=== PATIENT | female | born 1950 | race Caucasian/White ===

== ENCOUNTER → 2020-05-21 09:26 | Outpatient (CLI) | payer MEDICARE, OTHER, SELFPAY ==
--- NOTE | 2020-05-21 09:28 | DI.US.S_ITS ---
ULTRASOUND OF RIGHT BREAST AND AXILLA: 05/21/2020 CLINICAL: Patient returns today to evaluate an architectural distortion in the right breast. Comparison is made to exams dated: 05/21/2020 mammogram - [facility], 12/28/2017 ultrasound biopsy, 12/28/2017 mammogram - [facility], 11/24/2017 mammogram, 11/24/2017 ultrasound, and 03/15/2017 localization - [facility]. Color flow and real-time ultrasound of the right breast axilla were performed. Lei scale images of the real-time examination were reviewed. There is a 1.3 cm x 1.1 cm x 1.3 cm irregular mass with indistinct and angular margins in the right breast at 2 o'clock posterior depth 6 cm from the nipple. This irregular mass is hypoechoic with posterior acoustic shadowing. This correlates as palpated, with mammography findings, and area of clinical concern. There is associated architectural distortion. Color flow imaging demonstrates that there is vascularity present. No significant abnormalities were seen sonographically in the right axilla. IMPRESSION: HIGHLY SUGGESTIVE OF MALIGNANCY The 1.3 cm x 1.1 cm x 1.3 cm irregular mass in the right breast is highly suggestive of malignancy. An ultrasound guided biopsy is recommended. Findings and recommendations were discussed with the patient during today's examination by Dr. Santana. This exam was interpreted at Station ID: [id number]. Electronically Signed By: Duane Horton M.D. aty/:05/21/2020 12:57:38 letter sent: Biopsy Required Ultrasound BI-RADS: 5 Highly suggestive of malignancy
--- NOTE | 2020-05-21 09:28 | DI.MG.S_ITS ---
BILATERAL DIGITAL DIAGNOSTIC MAMMOGRAM 3D/2D POST LUMPECTOMY: 05/21/2020 CLINICAL: Right breast pain and lump. Comparison is made to exams dated: 11/24/2017 mammogram, 02/15/2017 mammogram, and 02/10/2017 mammogram - [facility]. There are scattered fibroglandular elements in both breasts. The right breast has post-operative findings. There is a new 1.7 cm irregular equal density mass in the right breast at 2 o'clock posterior depth. This correlates as palpated, with area of clinical concern, and skin marker. There is architectural distortion associated with the mass. No other significant masses, calcifications, or other findings are seen in either breast. IMPRESSION: INCOMPLETE: NEEDS ADDITIONAL IMAGING EVALUATION The new 1.7 cm irregular equal density mass in the right breast is indeterminate. An ultrasound is recommended for further evaluation and is scheduled to immediately follow this examination. This exam was interpreted at Station ID: [id number]. NOTE: For mammograms, a report in lay terms will be sent to the patient. Approximately 15% of breast malignancies will not be visualized mammographically. In the management of a palpable breast mass, a negative mammogram must not discourage biopsy of a clinically suspicious lesion. Electronically Signed By: Duane Horton M.D. aty/:05/21/2020 10:29:37 ACR BI-RADS Category 0: Incomplete [id number]
== END ==
PROVIDERS: PCP Nurse Practitioner; Referring Provider Nurse Practitioner; Visit Provider Nurse Practitioner
DX: R92.8 Other abnormal and inconclusive findings on diagnostic imaging of breast (principal); N63.12 Unspecified lump in the right breast, upper inner quadrant; N64.4 Mastodynia; N63.10 Unspecified lump in the right breast, unspecified quadrant; Z85.3 Personal history of malignant neoplasm of breast
CPT/HCPCS: 76642; 77066; G0279

== ENCOUNTER → 2020-06-05 13:02 | Outpatient (CLI) | payer MEDICARE, OTHER, SELFPAY ==
--- NOTE | 2020-06-05 | DI.MG.S_ITS ---
UNILATERAL RIGHT DIGITAL DIAGNOSTIC MAMMOGRAM: 06/05/2020 CLINICAL: Right post clip. Comparison is made to exams dated: 06/05/2020 ultrasound biopsy, 05/21/2020 ultrasound, and 05/21/2020 mammogram - [facility]. There are scattered fibroglandular elements in right breast. There is a marker clip in the appropriate position in the right breast at 2 o'clock posterior depth. This marker clip placement is at the biopsy site. IMPRESSION: POST PROCEDURE MAMMOGRAM FOR MARKER PLACEMENT There was a successful marker clip placement in the right breast posterior depth. This exam was interpreted at Station ID: [id number]. NOTE: For mammograms, a report in lay terms will be sent to the patient. Approximately 15% of breast malignancies will not be visualized mammographically. In the management of a palpable breast mass, a negative mammogram must not discourage biopsy of a clinically suspicious lesion. Electronically Signed By: Josefina Bhatti M.D. [facility]/:06/05/2020 15:40:12 ACR BI-RADS Category Post-procedure mammogram for marker placement
--- NOTE | 2020-06-05 | PATH_ITS ---
[facility] Accession Number: [id number] . 01 Material submitted: . breast - RIGHT BREAST SPECIMEN 2:00 6CMFN . 01 Diagnosis: Right Breast, 2 o'clock, 6 cm from Nipple, Image-Guided Core Biopsy: Invasive lobular carcinoma, intermediate grade. - Tootie score is 6 out of 9 possible (histologic = 3, nuclear = 2, mitotic index = 1). - In situ carcinoma: Not identified. - Lymphovascular invasion: Not identified. - Greatest linear dimension of invasive carcinoma: 0.8 cm as measured from the glass slide. - Calcifications: Not identified. - Predictive markers: Estrogen receptor positive, progesterone receptor negative, and HER2 equivocal by immunohistochemistry (please see comment for additional parameters). [facility] 06/10/2020 1625 Local . 01 Comment: Predictive marker immunohistochemical studies are performed on block A1 with the invasive carcinoma showing the following results: . Estrogen receptor (SP1): Positive (>95%, strong intensity). Progesterone receptor (1E2): Negative (0%). Her2 (4B5): Equivocal (2+); HER2 FISH analysis pending, reported as an addendum. . Immunostains to e-cadherin and beta-catenin are performed, which are negative on the invasive carcinoma, supporting the interpretation of a lobular as opposed to ductal type of carcinoma. . Internal controls for ER and MS are positive. Cold ischemic time is <5 minutes. The scoring criteria for breast biomarkers by immunohistochemistry is based on the ASCO/CAP guidelines (Aparna AC et al, J Clin Oncol: 2017Sep 13;36(20):5087-7519 and Aimee ME et al, Arch Pathol Lab Med: 2009;134(6):907-22). Deparaffinized sections of formalin fixed tissue (along with appropriate positive controls) are incubated with the above antibody(s). Using the automated [place]ura stainer, tissue is incubated with the designated antibody which is then localized by a non-biotin, dual polymer detection system. The external controls are reviewed for appropriate reactivity and found to be adequate. Results on the target cell population are indicated above. These tests have not been validated on decalcified tissue. This test was developed and its performance characteristics determined by [employer]. It has not been cleared or approved by the U.S. Food and Drug Administration. The FDA has determined that such clearance or approval is not necessary. This test is used for clinical purposes. It should not be regarded as investigational or for research. . The results of this case are verbally provided by Dr. Oakley to nurse practitioner Michaelle Quezada on 06/10/2020 at 3:55 p.m. She indicates that the patient has a history of breast carcinoma, status post right lumpectomy in 2018. . 01 Electronically signed: . Ciara Oakley MD, Pathologist NPI- [id number] . 01 Gross description: . Received one formalin-filled container, labeled with the patient's name and labeled R breast mass 2 o'clock 6 cm FN. The specimen is received with a plastic filter in container, sample loose in container and consists of multiple yellow-roblero, cylindrical-shaped portions of tissue which range in size from 0.1 x 0.1 x 0.1 cm to 0.7 x 0.3 x 0.2 cm. All fragments are totally submitted in one cassette. Possible collection date and time per requisition: 06/05/20 at 1426. Total fixation time: Approximately 70 hours. ([id number]) /FRR 06/07/2020 1422 Local . 01 Pathologist provided ICD-10: C50.911 . 01 CPT . 892273, V05843, E16918, 824594, 870334, 025333 Performed at: 01 [facility] [address] [place] [address], [place], [place] [id number] MD Mateo Ortiz MD Phone: [phone]
--- NOTE | 2020-06-05 13:04 | DI.US.S_ITS ---
ULTRASOUND GUIDED BIOPSY RIGHT BREAST USING VACUUM DEVICE WITH MARKING DEVICE INSERTED AND POST MAMMOGRAPHIC IMAGIN06/05/2020 CLINICAL: Right breast mass. PATIENT CONSENT: Risks (minor bleeding, infection, vasovagal reaction and repeat procedure), benefits and alternatives were explained to the patient and written informed consent was obtained. Correlation is made to exams dated: 05/21/2020 ultrasound, 05/21/2020 mammogram - [facility], 12/28/2017 ultrasound biopsy, 12/28/2017 mammogram - [facility], 11/24/2017 mammogram, and 11/24/2017 ultrasound - [facility]. An ultrasound guided biopsy using real-time ultrasound was performed for the indistinct irregular shaped mass located in the right breast at 2 o'clock posterior depth. This was described on the previous mammography and ultrasound reports. The skin was prepped in the usual manner. The abnormality was approached from the lateral aspect. A 13 gauge biopsy needle was placed adjacent to the abnormality under ultrasound guidance. Once the needle was documented to be in the correct location, four specimens were obtained using the Mammotome biopsy system. A Vision biopsy clip was inserted into the biopsy cavity. Post procedure mammographic imaging demonstrates the location device resides in the targeted area. The specimens were sent to the laboratory for pathological analysis. IMPRESSION: ULTRASOUND GUIDED BIOPSY MALIGNANT Ultrasound guided biopsy of the mass in the right breast at 2 o'clock posterior depth was successful. Pathology indicates malignant invasive lobular carcinoma ([place]). Pathology results are concordant with imaging findings. This exam was interpreted at Station ID: [id number]. Josefina Payne [facility]/:06/12/2020 12:46:10
== END ==
PROVIDERS: PCP Nurse Practitioner; Referring Provider Nurse Practitioner; Visit Provider Nurse Practitioner
DX: N63.12 Unspecified lump in the right breast, upper inner quadrant (principal); R92.8 Other abnormal and inconclusive findings on diagnostic imaging of breast; Z85.3 Personal history of malignant neoplasm of breast
CPT/HCPCS: 19083; 77065

== ENCOUNTER 2025-01-30 12:22 | Inpatient (IN) | payer MEDICARE, OTHER, SELFPAY ==
[2025-01-30] VITALS (20 sets, daily range): BP systolic 124–190; BP diastolic 67–90; PULSE 51–80; RESP 9–21; TEMP 36.3–37; O2SAT 92–100; BMI 19.2
--- NOTE | 2025-01-30 | DI.RAD.S_ITS ---
PROCEDURE: XR FEMUR RT MIN 2V INDICATIONS: HIP NAILING LONG NAIL TECHNIQUE: 2 views of the femur were acquired. COMPARISON: [facility], CR, XR HIP W PEL RT 2V, 01/30/2025, 12:38. FINDINGS: Intraoperative images demonstrating labeled right femoral fixation. Hardware is intact. There is relatively good anatomic alignment of fracture fragments. IMPRESSION: Intraoperative femoral fixation. Dictated by: Michelle Chavez M.D. on 01/30/2025 at 22:53 Approved by: Michelle Chavez M.D. on 01/30/2025 at 22:54
--- NOTE | 2025-01-30 12:30 | DI.RAD.S_ITS ---
PROCEDURE: XR HIP W PEL IF DONE RT 2V INDICATIONS: R hip dislocation vs fx. sitting down. mets from ca TECHNIQUE: AP pelvis with lateral view(s) of the right hip(s). COMPARISON: None. FINDINGS: Bones: Acute slightly comminuted fracture involving right proximal femoral shaft with the lateral angulation and displacement at fracture site. Pelvic ring appears intact. Markedly heterogeneous density throughout visualized bony pelvis and lower lumbar spine concerning for metastatic disease with possible pathologic fracture. No evidence of avascular necrosis of femoral head. Soft tissues: The visualized bowel gas pattern is normal. No suspicious soft tissue calcifications. IMPRESSION: Acute comminuted and angulated right proximal femoral shaft fracture. Heterogeneous density throughout bony pelvis and bilateral femoral shaft concerning for bony metastasis given patient's history of breast cancer and likely pathologic fracture. Dictated by: Silverio Figueroa M.D. on 01/30/2025 at 13:31 Approved by: Silverio Figueroa M.D. on 01/30/2025 at 13:32
--- NOTE | 2025-01-30 12:31 | ED.GENADULT ---
HPI - General Adult General Chief complaint: Extremity Injury, Lower Stated complaint: Hip Dislocation Time Seen by Provider: 01/30/25 12:26 Source: patient, EMS and RN notes reviewed Mode of arrival: EMS Limitations: no limitations History of Present Illness HPI narrative: 74-year-old female history of known metastatic breast cancer with Mets to the bone, dyslipidemia who presents with complaint of right hip pain which she describes as chronic in either hip dislocation or fracture. Patient was sitting down when her hip went out of place in his currently held in adduction across her other leg. Patient states it is painful bit better after medications from EMS. She states she did have pain before. She has never had any prior hip surgeries, she has never had a prior hip dislocation or fracture that she is aware of. She states there known metastases to her hip and pelvis region. She denies any numbness tingling or weakness. She denies pain elsewhere currently. She states she takes letrozole daily, tizanidine for daily medication she denies any anticoagulants. She denies any drug allergies. Former smoker, no regular alcohol, no recreational drugs. She follows with oncology at [facility]. Related Data Home Medications ?Medication ?Instructions ?Recorded ?Confirmed niacin 500 mg tablet,extended 500 mg PO BEDTIME 01/14/20 05/13/20 release (Endur-Acin) [place] Tail 1 cap PO DAILY 05/26/20 05/26/20 cardiotone 1 tab PO .HS Blood pressure 05/26/20 cholecalciferol (vitamin D3) 125 125 mcg PO DAILY 05/26/20 05/26/20 mcg (5,000 unit) capsule melatonin 10 mg capsule 10 mg PO BEDTIME PRN 05/26/20 05/26/20 omega-3 fatty acids 1,000 mg 1,000 mg PO DAILY 05/26/20 05/26/20 capsule (Fish Oil Concentrate) vitamin B complex (B 1 tab PO DAILY 05/26/20 05/26/20 Complex-Vitamin B12 tablet) zinc 50 mg tablet 50 mg PO DAILY 06/11/20 Previous Rx's ?Medication ?Instructions ?Recorded ascorbate calcium (vitamin C) 500 500 mg PO DAILY #1 tab 05/26/20 mg tablet Allergies Allergy/AdvReac Type Severity Reaction Status Date / Time No Known Drug Allergies Allergy Verified 01/30/25 12:37 Review of Systems Review of Systems ROS Unobtainable: All systems reviewed & are unremarkable except as noted in HPI and below Patient History Medical History Lobular breast cancer Hyperlipidemia Wears glasses Foot pain (~1999) Mumps Measles Chicken pox Family history of pulmonary fibrosis Osteopenia History of breast cancer (~2016) Surgical History Anesthesia History of breast biopsy (~2017) History of meniscectomy of right knee (~1967) History of meniscectomy of left knee (~1968) History of tonsillectomy (~1954) History of bunionectomy (~2007) S/P lumpectomy, right breast (~2017) Family History Father Hyperlipidemia Hypertension Mother Pulmonary fibrosis Grandfather History of heart disease Social History Smoking Status: Never smoker Tobacco: How many years used: 1 alcohol intake: current (~1-2 per week ) substance use type: does not use Exam Narrative Exam Narrative: GENERAL: Alert and oriented x three, mild distress, thin/cachectic female HEENT: Head normocephalic, atraumatic, EOMI, pupils reactive, face symmetric, moist mucous membranes NECK: Supple, full range of motion CARDIOVASCULAR: Regular rate and rhythm without murmurs, rubs or gallops. RESPIRATORY: Breath sounds equal bilaterally, no wheezes rales or rhonchi. ABDOMEN: Soft, nontender. Normoactive bowel sounds all 4 quadrants. No guarding or rebound, rigidity, no mass : No CVA tenderness EXTREMITIES: Patient's right hip is held in adduction extending across her left lower extremity. She has 2+ pulses bilaterally. She has normal dorsiflexion plantar flexion with no tenderness of the ankle, knee. She is not particularly tender over the hip itself. Patient has not no ecchymosis or other skin changes. She has no other bony tenderness with normal range of motion of her other extremities. NEUROLOGICAL: Cranial nerves II through XII grossly intact. Moving all extremities SKIN: Warm, dry, no petechiae, no rashes or lesions. Initial Vital Signs Initial Vital Signs: Vital Signs Pulse Rate 70 01/30/25 12:29 Pulse Oximetry 92 01/30/25 12:29 Course Orders Ordered: ED Orders 01/30/25 12:30 XR hip w pel RT 2V Stat 01/30/25 12:49 CBC Auto Diff [Complete Blood Count AUTO DIFF] Stat CMP [Comprehensive Metabolic Panel] Stat 01/30/25 13:31 EKG-12 Lead Routine 01/30/25 14:07 Type and Screen Stat 01/30/25 19:15 XR C-arm up to 60 min Stat Lactated Ringer's (Lactated Ringers) 1,000 mls @ 42 mls/hr IV CONT ERINN Discontinued Medications Acetaminophen (Acetaminophen 325 Mg Tablet) 975 mg PO NOW ONE Stop: 01/30/25 15:26 Hydromorphone HCl (Hydromorphone Hcl 0.5 Mg/0.5 Ml Syringe) 0.5 mg IV NOW ONE Stop: 01/30/25 13:49 Last Admin: 01/30/25 14:20 Dose: 0.5 mg Documented By: RAÚL Sodium Chloride (Normal Saline 0.9%) 1,000 mls @ 1,000 mls/hr IV BOLUS ONE Stop: 01/30/25 15:05 Last Admin: 01/30/25 14:20 Dose: 1,000 mls/hr Documented By: RAÚL Vital Signs Vital signs: Vital Signs - 8 hr 01/30/25 12:29 01/30/25 12:30 01/30/25 12:30 Temperature Pulse Rate 70 69 Pulse Rate [Right Dorsalis Pedis] Respiratory Rate 12 Blood Pressure 147/84 H Pulse Oximetry 92 92 Oxygen Delivery Method 01/30/25 12:37 01/30/25 12:45 Temperature 98.6 F Pulse Rate 65 Pulse Rate [Right Dorsalis Pedis] 70 Respiratory Rate 18 Blood Pressure 124/88 Pulse Oximetry 98 Oxygen Delivery Method Room Air Medical Decision Making Lab Data 01/30/25 12:49 01/30/25 12:49 Labs: Lab Results 01/30/25 Range/Units 12:49 WBC 4.0 L (4.5-11.0) X10^3/uL RBC 3.56 L (4.0-5.2) X10^6/uL Hgb 10.9 L (12.0-16.0) g/dL Hct 31.6 L (36-46) % MCV 88.8 (80-100) fL MCH 30.5 (26-34) PG MCHC 34.4 (30-36) % RDW 13.0 (11.6-14.8) % Plt Count 135 L (150-400) X10^3/uL Neut % (Auto) 78.0 H (50-75) % Lymph % (Auto) 13.6 L (25-40) % [place] % (Auto) 8.0 (3-14) % Eos % (Auto) 0.2 L (2-4) % Baso % (Auto) 0.2 (0-2) % Neut # (Auto) 3100 (9843-7205) /uL Lymph # (Auto) 500 L (2326-3105) /uL [place] # (Auto) 300 (0-900) /uL Eos # (Auto) 0 (0-450) /uL Baso # (Auto) 0 (0-100) /uL Sodium 139 (137-145) mmol/L Potassium 3.4 (3.4-5.1) mmol/L Chloride 101 (98-107) mmol/L Carbon Dioxide 29 (22-32) mmol/L BUN 21 H (7-17) mg/dL Creatinine 1.02 (0.52-1.04) mg/dL Estimated GFR 58 L (>60) mL/min BUN/Creatinine Ratio 20.6 (6-22) Glucose 104 H (70-99) mg/dL Calcium 11.1 H (8.4-10.2) mg/dL Total Bilirubin 0.9 (0.2-1.3) mg/dL AST 61 H (14-36) IU/L ALT 27 (<35) IU/L Alkaline Phosphatase 263 H (38-126) U/L Total Protein 6.4 (6.3-8.2) g/dL Albumin 3.8 (3.5-5.0) g/dL Globulin 2.6 (1.7-4.1) g/dL Albumin/Globulin Ratio 1.5 (1.0-2.8) MDM Narrative Medical decision making narrative: Hip x-ray, right shows a right hip fracture awaiting final report. Formal report shows acute comminuted and angulated right proximal femoral shaft fracture heterogeneous density throughout bony pelvis and bilateral femoral shaft concerning for bony metastases given patient's history of breast cancer and likely pathologic fracture. Labs white count of 4 hemoglobin 10.9 platelets of 135, chemistries show BUN 21 otherwise normal electrolytes calcium is 11.1, AST 61 alk-phos is 263. EKG shows sinus rhythm left axis deviation, nonspecific ST change. No prior for comparison. 74-year-old female with right femur fracture while sitting down with known metastatic breast cancer with Mets to the bones. Patient has significant angulation of the fracture. She is neurovascularly intact evaluation. Patient received fluids for her hypocalcemia, pain medication. Spoke with orthopedic surgery, Dr. June who has patient here in the department, reviewed her imaging he would like to take to the OR today. Aware of history of metastatic bone cancer. Plan for admission to medicine. Defers CT imaging, will reduce in OR. Spoke with Dr. Rae, hospitalist who accepts for admission. Discharge Plan Departure Patient Disposition: Admitted As Inpatient Clinical Impression: Closed right femoral fracture, Hypercalcemia Admit Date/Time: 01/30/25 14:49 Admit Provider: Teto June
[2025-01-30 12:59] LABS: Add Manual Diff / Slide Review NO; Hematocrit 31.6 % (36-46); Hemoglobin 10.9 g/dL (12.0-16.0); Lymphocytes Absolute Auto 500 /uL (1100-4500); Mean Corpuscular HGB Conc 34.4 % (30-36); Mean Corpuscular Hemoglobin 30.5 PG (26-34); Mean Corpuscular Volume 88.8 fL (80-100); Platelet Count 135 X10^3/uL (150-400)
[2025-01-30 13:14] LABS: Alanine Aminotransferase 27 IU/L (<35); Albumin 3.8 g/dL (3.5-5.0); Albumin Globulin Ratio 1.5 (1.0-2.8); Alkaline Phosphatase 263 U/L (38-126); Blood Urea Nitrogen 21 mg/dL (7-17); Calcium 11.1 mg/dL (8.4-10.2); Carbon Dioxide 29 mmol/L (22-32); Chloride 101 mmol/L (98-107); Estimated Glomerular Filt Rate 58 mL/min (>60); Globulin 2.6 g/dL (1.7-4.1); Glucose 104 mg/dL (70-99); HEMOLYSIS < 15 (0-50); Potassium 3.4 mmol/L (3.4-5.1); Sodium 139 mmol/L (137-145); Total Protein 6.4 g/dL (6.3-8.2)
--- NOTE | 2025-01-30 13:31 | EKG_ITS ---
[id number], [place] [address] Test Date: 2025-01-30 Pat Name: Urmila Fernandez Department: Room: Gender: Female Studio Sales Associate: ANGEL : 1950 Requested By: Order Number: [id number] Reading MD: Jarek Rae Measurements Intervals [place] Rate: 80 P: 81 [place]: 168 QRS: -50 QRSD: 82 T: 58 QT: 390 QTc: 449 Interpretive Statements Normal sinus rhythm Left axis deviation Pulmonary disease pattern Minimal voltage criteria for LVH, may be normal variant ( Truman product ) Nonspecific ST and T wave abnormality Noisy baseline Electronically Signed On 01-30-2025 15:01:58 PST by Jarek Rae
[2025-01-30] MEDS: SODIUM CHLORIDE 0.9% 1,000 ML 1000 ML IV (14:20)
[2025-01-30] MEDS: LACTATED RINGERS 1,000 ML 42 ML IV ×3 (16:11→22:26)
--- NOTE | 2025-01-30 16:38 | P.HP_ITS ---
History of Present Illness History of Present Illness Date Patient Seen: 01/30/25 Time Patient Seen: 15:00 Chief complaint: Hip Dislocation Narrative: The patient was a pleasant 74-year-old female with metastatic breast cancer who lives on [facility]. She developed right hip pain which occurred when her hip when on a place while sitting and trying to cross her leg. She came by ambulance and imaging revealed a hip fracture. She does have known metastases to bones. Orthopedics anticipates an operative repair later this evening. She had no other injuries and denies any other sites of pain. Her pain is well- controlled in the emergency department. [facility] Medical History Lobular breast cancer Hyperlipidemia Wears glasses Foot pain (~1999) Mumps Measles Chicken pox Family history of pulmonary fibrosis Osteopenia History of breast cancer (~2016) Surgical History Anesthesia History of breast biopsy (~2017) History of meniscectomy of right knee (~1967) History of meniscectomy of left knee (~1968) History of tonsillectomy (~1954) History of bunionectomy (~2007) S/P lumpectomy, right breast (~2017) Family History Father Hyperlipidemia Hypertension Mother Pulmonary fibrosis Grandfather History of heart disease Social History Smoking Status: Never smoker Tobacco: How many years used: 1 alcohol intake: current substance use type: does not use Meds Home Medications and Allergies Home Medications ?Medication ?Instructions ?Recorded ?Confirmed ?Type melatonin 10 mg capsule 10 mg PO BEDTIME PRN insomni a 05/26/20 01/30/25 History letrozole 2.5 mg tablet 2.5 mg PO DAILY 01/30/25 History methadone 10 mg/mL oral concentrate 10 mg PO TID 01/3001/30/25 History tizanidine 2 mg tablet 2 mg PO Q6H PRN pain 5 01/30/25 History Allergies Allergy/AdvReac Type Severity Reaction Status Date / Time No Known Drug Allergies Allergy Verified 01/30/25 12:37 Review of Systems Review of Systems Narrative: All else reviewed and otherwise unremarkable except as noted in the history and physical. Exam Vital Signs (past 8 hours): - 01/30/25 12:29 01/30/25 12:30 01/30/25 12:30 Temperature Pulse Rate 70 69 Pulse Rate [Right Dorsalis Pedis] Respiratory Rate 12 Blood Pressure 147/84 H Pulse Oximetry 92 92 Oxygen Delivery Method 01/30/25 12:37 01/30/25 12:45 01/30/25 13:10 Temperature 98.6 F Pulse Rate 65 72 Pulse Rate [Right Dorsalis Pedis] 70 Respiratory Rate 18 Blood Pressure 124/88 Pulse Oximetry 98 99 Oxygen Delivery Method Room Air 01/30/25 13:30 01/30/25 13:30 01/30/25 14:00 Temperature Pulse Rate 77 73 Pulse Rate [Right Dorsalis Pedis] Respiratory Rate 20 20 Blood Pressure 190/88 H Pulse Oximetry 100 99 Oxygen Delivery Method 01/30/25 14:01 01/30/25 14:01 01/30/25 14:33 Temperature Pulse Rate 75 70 Pulse Rate [Right Dorsalis Pedis] Respiratory Rate 18 Blood Pressure 178/72 H Pulse Oximetry 98 98 Oxygen Delivery Method 01/30/25 15:00 01/30/25 15:30 01/30/25 15:45 Temperature 98 F Pulse Rate 71 75 80 Pulse Rate [Right Dorsalis Pedis] Respiratory Rate 14 13 18 Blood Pressure 178/88 H Pulse Oximetry 97 100 Oxygen Delivery Method Oxygen Delivery Method Room Air Narrative Exam Narrative: NAD, alert and oriented, fluent speech, calm. Normocephalic skull, EOMI, anicteric sclera, symmetric pupils. Oropharynx unremarkable, no droop. Neck supple, midline trachea, no adenopathy. Lungs clear, normal rate and effort. Heart regular, no murmur gallop or rub. Abdomen is soft, non distended and non tender. Extremities are free of edema. Skin is free of rash or lesions. Joints are not swollen or deformed. Judgment appears to be normal. Objective Imaging Hip XRay:: Radiologist's impression: Acute comminuted and angulated right proximal femoral shaft fracture. Heterogeneous density throughout bony pelvis and bilateral femoral shaft concerning for bony metastasis given patient's history of breast cancer and likely pathologic fracture. Labs 01/30/25 12:49 01/30/25 12:49 Labs: Laboratory Results - last 24 hr 01/30/25 12:49 WBC 4.0 L RBC 3.56 L Hgb 10.9 L Hct 31.6 L MCV 88.8 MCH 30.5 MCHC 34.4 RDW 13.0 Plt Count 135 L Neut % (Auto) 78.0 H Lymph % (Auto) 13.6 L [place] % (Auto) 8.0 Eos % (Auto) 0.2 L Baso % (Auto) 0.2 Neut # (Auto) 3100 Lymph # (Auto) 500 L [place] # (Auto) 300 Eos # (Auto) 0 Baso # (Auto) 0 Sodium 139 Potassium 3.4 Chloride 101 Carbon Dioxide 29 BUN 21 H Creatinine 1.02 Estimated GFR 58 L BUN/Creatinine Ratio 20.6 Glucose 104 H Calcium 11.1 H Total Bilirubin 0.9 AST 61 H ALT 27 Alkaline Phosphatase 263 H Total Protein 6.4 Albumin 3.8 Globulin 2.6 Albumin/Globulin Ratio 1.5 Assessment & Plan Assessment & Plan narrative: 1. Pathologic proximal femur fracture secondary to breast cancer and bone, active. 2. Metastatic breast cancer, active. 3. Mild hypercalcemia, active. PLAN: -operative repair -IV fluids and monitor calcium -pain control -DVT prophylaxis after surgery, she will likely require more than just aspirin twice a day. DNR, confirmed today. It was then [facility]. Time-Based Coding :: 35 min spent with patient and on the chart (including review of chart, obtaining history, exam, reviewing outside data, placing orders, documenting exam and treatment plan, and counseling patient) on 01/30. Quality MIPS - Admit I confirm the patient?s Advance Care Plan is present, Code status is documented, Surrogate decision maker is in patient?s record [If Yes, STOP here]: Yes MIPS - Meds 'Current medications' to include all prescriptions, [id number] products, herbals, cannabis/cannabidiol products, and vitamin/mineral/dietary (nutritional) supplements. I have utilized all available resources to obtain, update, or review the patient?s current medications. [If Yes, STOP here]: Yes
--- NOTE | 2025-01-30 16:42 | PC.NURSE ---
Pt arrived from ED. Admission assessments completed. Posterior side of skin unable to be assessed due to right hip dislocation.
--- NOTE | 2025-01-30 16:48 | PM.HP.IH.1 ---
History of Present Illness History of Present Illness Date Patient Seen: 01/30/25 Time Patient Seen: 14:00 Chief complaint: RIGHT Hip Fracture Narrative: 74yo F with a past medical history of metastatic breast cancer presents to the emergency department with right hip pain. She had increasing right hip pain over the last couple of weeks. She reports that she attempted to sit down in her couch and she felt a crack in her hip. She had immediate pain and was unable to ambulate. She was then brought to the emergency department where they obtained radiographs which demonstrated her right hip fracture. Orthopedics was then consulted. [facility] Medical History Lobular breast cancer Hyperlipidemia Wears glasses Foot pain (~1999) Mumps Measles Chicken pox Family history of pulmonary fibrosis Osteopenia History of breast cancer (~2016) Surgical History Anesthesia History of breast biopsy (~2017) History of meniscectomy of right knee (~1967) History of meniscectomy of left knee (~1968) History of tonsillectomy (~1954) History of bunionectomy (~2007) S/P lumpectomy, right breast (~2017) Family History Father Hyperlipidemia Hypertension Mother Pulmonary fibrosis Grandfather History of heart disease Social History Smoking Status: Never smoker Tobacco: How many years used: 1 alcohol intake: current substance use type: does not use Meds Home Medications and Allergies Home Medications ?Medication ?Instructions ?Recorded ?Confirmed ?Type melatonin 10 mg capsule 10 mg PO BEDTIME PRN insomnia 05/26/20 01/30/25 History letrozole 2.5 mg tablet 2.5 mg PO DAILY 01/30/25 01/30/25 History methadone 10 mg/mL oral concentrate 10 mg PO TID 01/30/25 01/30/25 History tizanidine 2 mg tablet 2 mg PO Q6H PRN pain 01/30/25 01/30/25 History Allergies Allergy/AdvReac Type Severity Reaction Status Date / Time No Known Drug Allergies Allergy Verified 01/30/25 12:37 Exam Vital Signs (past 8 hours): - 01/30/25 12:29 01/30/25 12:30 01/30/25 12:30 Temperature Pulse Rate 70 69 Pulse Rate [Right Dorsalis Pedis] Respiratory Rate 12 Blood Pressure 147/84 H Pulse Oximetry 92 92 Oxygen Delivery Method 01/30/25 12:37 01/30/25 12:45 01/30/25 13:10 Temperature 98.6 F Pulse Rate 65 72 Pulse Rate [Right Dorsalis Pedis] 70 Respiratory Rate 18 Blood Pressure 124/88 Pulse Oximetry 98 99 Oxygen Delivery Method Room Air 01/30/25 13:30 01/30/25 13:30 01/30/25 14:00 Temperature Pulse Rate 77 73 Pulse Rate [Right Dorsalis Pedis] Respiratory Rate 20 20 Blood Pressure 190/88 H Pulse Oximetry 100 99 Oxygen Delivery Method 01/30/25 14:01 01/30/25 14:01 01/30/25 14:33 Temperature Pulse Rate 75 70 Pulse Rate [Right Dorsalis Pedis] Respiratory Rate 18 Blood Pressure 178/72 H Pulse Oximetry 98 98 Oxygen Delivery Method 01/30/25 15:00 01/30/25 15:30 01/30/25 15:45 Temperature 98 F Pulse Rate 71 75 80 Pulse Rate [Right Dorsalis Pedis] Respiratory Rate 14 13 18 Blood Pressure 178/88 H Pulse Oximetry 97 100 Oxygen Delivery Method Oxygen Delivery Method Room Air Narrative Exam Narrative: RIGHT Hip: Inspection: No erythema, right leg was crossed over the left leg ROM deferred due to known fracture Neurovascular exam: Strength exam deferred due to known fracture SILT s/s/sp/dp/t however she was diminished within the deep peroneal and superficial peroneal nerve distributions, 2+ dp Imaging: Radiographs of the right hip on January 30, 2025: Displaced subtroch fracture. Objective Labs 01/30/25 12:49 01/30/25 12:49 Labs: Laboratory Results - last 24 hr 01/30/25 12:49 WBC 4.0 L RBC 3.56 L Hgb 10.9 L Hct 31.6 L MCV 88.8 MCH 30.5 MCHC 34.4 RDW 13.0 Plt Count 135 L Neut % (Auto) 78.0 H Lymph % (Auto) 13.6 L [place] % (Auto) 8.0 Eos % (Auto) 0.2 L Baso % (Auto) 0.2 Neut # (Auto) 3100 Lymph # (Auto) 500 L [place] # (Auto) 300 Eos # (Auto) 0 Baso # (Auto) 0 Sodium 139 Potassium 3.4 Chloride 101 Carbon Dioxide 29 BUN 21 H Creatinine 1.02 Estimated GFR 58 L BUN/Creatinine Ratio 20.6 Glucose 104 H Calcium 11.1 H Total Bilirubin 0.9 AST 61 H ALT 27 Alkaline Phosphatase 263 H Total Protein 6.4 Albumin 3.8 Globulin 2.6 Albumin/Globulin Ratio 1.5 Assessment & Plan Assessment & Plan narrative: 74 yo F presents with history, physical exam and imaging findings consistent with a right hip fracture. It was explained to the patient that she should undergo operative fixation of the right hip. The risks, benefits and alternatives of the procedure were discussed with the patient to include bleeding, infection, damage to surrounding structures, ongoing pain, malunion, nonunion, need for additional surgery, and anesthesia risks such as heart attack stroke and . The patient understood these risks and wanted to move forward with the procedure. Consent was completed. Time-Based Coding :: [TOTAL MINUTES] spent with patient and on the chart (including review of chart, obtaining history, exam, reviewing outside data, placing orders, documenting exam and treatment plan, and counseling patient) on [DATE]. PROFEE Display Manager Document charge(s): Yes
--- NOTE | 2025-01-30 20:15 | SUR.OPER ---
Head on pillow. Supine on fracture table with operative leg secured in traction. Other leg secured in padded stirrup. Arms across chest, secured with sheet. Final positioning done by provider
[2025-01-30] MEDS: TRANEXAMIC ACID 1,000 MG in SODIUM CHLORIDE 0.9% 100 ML 200 MG IV (21:08)
--- NOTE | 2025-01-30 22:42 | PM.OP.1 ---
Operative Date/Time/Diagnoses Date of procedure: 01/30/25 Time of procedure: 21:00 Pre-op diagnosis: Right Hip Fracture Post-op diagnosis: same Procedure & Clinicians Procedure: Cephalomedullary Nail of the Right Hip Same procedure(s) as scheduled: Yes Indications: Unstable Right Hip Subtroch Fracture Surgeon: Teto June Assisted?: Yes Hospital Nurse Liaison: Charisse Ghosh Anesthesia Type: General Operative Notes Findings: Unstable rigth hip sub troch fracture Closure Type: primary Specimen(s): none sent Applied: none Estimated Blood Loss (mL): 100 Blood products transfused: none Procedure in detail: Op Note Date of Procedure: 01/30/25 Pre-Op Diagnosis: Right sub trochanteric Hip Fracture Post-Op Diagnosis: Right sub trochanteric Hip Fracture Procedure: Open Reduction and Internal fixation of the right sub trochanteric Hip Fracture Surgeon: Teto June MD Co-Surgeon: Charisse Ghosh DO Anesthesia Type: General EBL: 100cc Urine Output: N/A Specimens Removed: None Complications: None Implants/Grafts: Tri Gen inner roblero 10 mm x 36 cm, right 125?; tri Gen inner roblero integrated interlocking lag screw 90 mm lag screw and 85 mm compression screw; tri Gen 5 mm x 32.5 mm screw Drains: No lines, drains, or airways are recorded for this episode. Findings: Unstable right subtrochanteric fracture Narrative: The patient was taken to the OR and administered anesthetic and preoperative antibiotics. They were placed on the fracture table with the operative leg in traction boot. SCD device placed on the nonoperative leg and it placed in a boot and lowered out of the plane of the other leg. Using traction and appropriate rotation, the hip was reduced to near anatomic position on fluoroscopic views. Standard prep and drape was done. Percutaneous approach to the hip was used. Incision was made in line with and 5cm proximal to the greater trochanter. The incision was carried down through skin and subcutaneous fat to the fascia. Hemostasis achieved. The guide wire was then inserted at the tip of the greater trochanter and down into the proximal femoral shaft ensuring not to enter through the fracture site. The opening reamer was then used to ream over the guidewire down to the level of the lesser trochanter, taking care to remove bone centrally and not distract the fracture. The guidewire was removed. The ball tipped guide wire was placed to the knee and the length was measured. The canal was reamed until chatter was heard and an appropriately sized nail was then placed. Through a separate incision the aiming device for the interlocking screws was placed. The initial guidewires placed and checked both on AP and lateral fluoroscopy. This was measured at approximately 98 mm. We decided to use a 90 screw. We drilled out the lateral cortex. Proceeded to ream out the inferior portion to approximately 85 mm. The de-rotational device was placed. We then placed our 90 mm lag screw proximally and then went on to place our 85 mm compression screw distally. We checked our positioning both with AP and lateral fluoroscopy. There another separate small incision and distal locking screw was then drilled and inserted. AP and lateral fluoroscopic views confirmed satisfactory reduction and implant position. The wounds were irrigated. Fascia jayro closed with #0 Vicryl followed by skin with 2-0 Vicryl and yvonne in all incisions. Sterile dressings placed. Patient transferred to recovery room bed. Patient transferred to recovery room in stable condition. Plan: Weight bearing as tolerated. Follow-up in 2 weeks for wound check and staple removal. DVT prophylaxis with 6 weeks of aspirin. Physical therapy. Teto June MD Complications: none Post-operative Condition: stable Disposition: PACU
--- NOTE | 2025-01-30 23:08 | DI.RAD.S_ITS ---
PROCEDURE: XR HIP W PEL IF DONE RT 2V INDICATIONS: post op TECHNIQUE: AP pelvis and lateral view of the hip acquired. COMPARISON: [facility], JENNIFER, XR HIP W PEL RT 2V, 01/30/2025, 12:38. FINDINGS: Bones: Patient is status post right femoral fixation, with hardware components in expected positions. The hip joint appears congruent. The visualized bony structures appear intact. Soft tissues: Overlying postoperative changes are noted. No suspicious soft tissue densities. IMPRESSION: Expected post-operative appearance of right femoral fixation. Dictated by: Michelle Chavez M.D. on 01/30/2025 at 23:49 Approved by: Michelle Chavez M.D. on 01/30/2025 at 23:49
[2025-01-31] VITALS (7 sets, daily range): BP systolic 105–152; BP diastolic 56–75; PULSE 56–69; RESP 14–19; TEMP 35.8–36.9; O2SAT 92–97
[2025-01-31] MEDS: ACETAMINOPHEN 325 MG TABLET 650 MG PO ×4 (00:05→22:37)
[2025-01-31] MEDS: ASPIRIN EC 81 MG TABLET PO ×2 (00:05→09:09)
[2025-01-31] MEDS: DOCUSATE 100 MG CAPSULE PO ×3 (00:06→20:53)
[2025-01-31] MEDS: LACTATED RINGERS 1,000 ML 100 ML IV ×2 (00:06→09:37)
--- NOTE | 2025-01-31 00:09 | SUR.PHASEI ---
Pt transferred to room 213 in bed with cell phone and glasses. Claudia care done with HEELER and pur wik applied. Pt able to assist with turn in bed.
[2025-01-31 05:17] LABS: Add Manual Diff / Slide Review NO; Hematocrit 31.2 % (36-46); Hemoglobin 10.7 g/dL (12.0-16.0); Lymphocytes Absolute Auto 900 /uL (1100-4500); Mean Corpuscular HGB Conc 34.3 % (30-36); Mean Corpuscular Hemoglobin 30.7 PG (26-34); Mean Corpuscular Volume 89.4 fL (80-100); Platelet Count 128 X10^3/uL (150-400)
[2025-01-31 05:28] LABS: Blood Urea Nitrogen 19 mg/dL (7-17); Calcium 10.5 mg/dL (8.4-10.2); Carbon Dioxide 26 mmol/L (22-32); Chloride 103 mmol/L (98-107); Estimated Glomerular Filt Rate 60 mL/min (>60); Glucose 126 mg/dL (70-99); HEMOLYSIS < 15 (0-50); Potassium 4.6 mmol/L (3.4-5.1); Sodium 138 mmol/L (137-145)
--- NOTE | 2025-01-31 07:32 | P.PN_ITS ---
Subjective Subjective Interval history: Summary: 74yo F with a past medical history of metastatic breast cancer presents to the emergency department with right hip pain. She had increasing right hip pain over the last couple of weeks. She reports that she attempted to sit down in her couch and she felt a crack in her hip. She had immediate pain and was unable to ambulate. She was then brought to the emergency department where they obtained radiographs which demonstrated her right hip fracture. Orthopedics was then consulted. 01/30: Underwent Cephalomedullary Nail of the Right Hip. S: She is doing well. She was minimal pain in her hip. She did well with physical therapy in his able to ambulate partially across the room. O: VSS NAD, alert and oriented. Fluent speech. Lungs are clear, normal rate and effort. Heart is regular, no murmur gallop or rub. Abdomen is soft, non distended. Extremities are free of edema. A/P: Assessment & Plan narrative: 1. Pathologic proximal femur fracture secondary to breast cancer and bone, active. 2. Metastatic breast cancer, active. 3. Mild hypercalcemia, active. PLAN: -PT -pain control -DVT prophylaxis after surgery, Lovenox 30 mg subQ daily. DNR, confirmed at admission Lives on [facility]. Exam Vital Signs (past 8 hours): - 01/31/25 00:00 01/31/25 00:30 01/31/25 01:00 Temperature 98.5 F 97.7 F 97.7 F Pulse Rate 65 66 63 Respiratory Rate 16 16 16 Blood Pressure 124/65 136/71 118/63 Pulse Oximetry 96 92 93 Oxygen Flow Rate 0 0 0 01/31/25 02:00 01/31/25 03:00 Temperature 96.6 F L 96.5 F L Pulse Rate 61 56 L Respiratory Rate 19 18 Blood Pressure 105/56 L 106/62 Pulse Oximetry 94 94 Oxygen Flow Rate 0 0 Oxygen Delivery Method Room Air Oxygen Flow Rate 0 Objective Labs 01/31/25 04:10 01/31/25 04:10 Labs: Laboratory Results - last 24 hr 01/30/25 01/30/25 01/31/25 12:49 19:44 04:10 WBC 4.0 L 6.6 D RBC 3.56 L 3.49 L Hgb 10.9 L 10.7 L Hct 31.6 L 31.2 L MCV 88.8 89.4 MCH 30.5 30.7 MCHC 34.4 34.3 RDW 13.0 13.3 Plt Count 135 L 128 L Neut % (Auto) 78.0 H 80.2 H Lymph % (Auto) 13.6 L 14.3 L [place] % (Auto) 8.0 5.3 Eos % (Auto) 0.2 L 0.0 L Baso % (Auto) 0.2 0.2 Neut # (Auto) 3100 5300 Lymph # (Auto) 500 L 900 L [place] # (Auto) 300 400 Eos # (Auto) 0 0 Baso # (Auto) 0 0 Sodium 139 138 Potassium 3.4 4.6 D Chloride 101 103 Carbon Dioxide 29 26 BUN 21 H 19 H Creatinine 1.02 1.00 Estimated GFR 58 L 60 BUN/Creatinine Ratio 20.6 19.0 Glucose 104 H 126 H Calcium 11.1 H 10.5 H Total Bilirubin 0.9 AST 61 H ALT 27 Alkaline Phosphatase 263 H Total Protein 6.4 Albumin 3.8 Globulin 2.6 Albumin/Globulin Ratio 1.5 Blood Type A Positive Antibody Screen Negative [facility] Medical History Lobular breast cancer Hyperlipidemia Wears glasses Foot pain (~1999) Mumps Measles Chicken pox Family history of pulmonary fibrosis Osteopenia History of breast cancer (~2016) Surgical History Anesthesia History of breast biopsy (~2017) History of meniscectomy of right knee (~1967) History of meniscectomy of left knee (~1968) History of tonsillectomy (~1954) History of bunionectomy (~2007) S/P lumpectomy, right breast (~2017) Family History Father Hyperlipidemia Hypertension Mother Pulmonary fibrosis Grandfather History of heart disease Social History household members: other Smoking Status: Never smoker Tobacco: How many years used: 1 alcohol intake: current substance use type: does not use Assessment & Plan Time-Based Coding :: [TOTAL MINUTES] spent with patient and on the chart (including review of chart, obtaining history, exam, reviewing outside data, placing orders, documenting exam and treatment plan, and counseling patient) on [DATE].
--- NOTE | 2025-01-31 08:42 | PM.PNPO.1 ---
Exam Vital Signs (past 8 hours): - 01/31/25 01:00 01/31/25 02:00 01/31/25 03:00 Temperature 97.7 F 96.6 F L 96.5 F L Pulse Rate 63 61 56 L Respiratory Rate 16 19 18 Blood Pressure 118/63 105/56 L 106/62 Pulse Oximetry 93 94 94 Oxygen Flow Rate 0 0 0 Oxygen Delivery Method Room Air Oxygen Flow Rate 0 Objective Labs 01/31/25 04:10 01/31/25 04:10 Labs: Laboratory Results - last 24 hr 01/30/25 01/30/25 01/31/25 12:49 19:44 04:10 WBC 4.0 L 6.6 D RBC 3.56 L 3.49 L Hgb 10.9 L 10.7 L Hct 31.6 L 31.2 L MCV 88.8 89.4 MCH 30.5 30.7 MCHC 34.4 34.3 RDW 13.0 13.3 Plt Count 135 L 128 L Neut % (Auto) 78.0 H 80.2 H Lymph % (Auto) 13.6 L 14.3 L [place] % (Auto) 8.0 5.3 Eos % (Auto) 0.2 L 0.0 L Baso % (Auto) 0.2 0.2 Neut # (Auto) 3100 5300 Lymph # (Auto) 500 L 900 L [place] # (Auto) 300 400 Eos # (Auto) 0 0 Baso # (Auto) 0 0 Sodium 139 138 Potassium 3.4 4.6 D Chloride 101 103 Carbon Dioxide 29 26 BUN 21 H 19 H Creatinine 1.02 1.00 Estimated GFR 58 L 60 BUN/Creatinine Ratio 20.6 19.0 Glucose 104 H 126 H Calcium 11.1 H 10.5 H Total Bilirubin 0.9 AST 61 H ALT 27 Alkaline Phosphatase 263 H Total Protein 6.4 Albumin 3.8 Globulin 2.6 Albumin/Globulin Ratio 1.5 Blood Type A Positive Antibody Screen Negative [facility] Medical History Lobular breast cancer Hyperlipidemia Wears glasses Foot pain (~1999) Mumps Measles Chicken pox Family history of pulmonary fibrosis Osteopenia History of breast cancer (~2016) Surgical History Anesthesia History of breast biopsy (~2018) History of meniscectomy of right knee (~1967) History of meniscectomy of left knee (~1968) History of tonsillectomy (~1954) History of bunionectomy (~2007) S/P lumpectomy, right breast (~2017) Family History Father Hyperlipidemia Hypertension Mother Pulmonary fibrosis Grandfather History of heart disease Social History Smoking Status: Never smoker Tobacco: How many years used: 1 alcohol intake: current substance use type: does not use Assessment & Plan Post-op Postoperative Procedures: Procedures Operation Date: 01/30/25 19:15 Actual Procedure Side Surgeon p Intramedullary Nailing Femur- Long nail Right Teto June MD Postoperative plan narrative: ID: 74 yo F s/p RIGHT Hip Cephalomedullary Nail for a RIGHT subtrochanteric femur fracture on 01/30/25 S: Pain controlled with pain medications. Denies F/C/NS/CP/SOB. Tolerating PO. She reports that she got up out of bed and walked to the bed side commode with a walker. O: RIGHT Hip: Dressings with small amount of strikethrough Fires Quad/Hamstring/TA/Gastroc/EHL SILT in S/S/DP/SP/T nerve distributions Cap refill < 2 sec A/P: 74 yo F s/p RIGHT Hip Cephalomedullary Nail on 01/30/25 ?Admitted to Hospitalist (Appreciate assistance with this patient) ?WBAT ?PT/OT ?DVT Proph per primary team ?Multimodal Pain Control ?DISPO: Pending however the patient will follow up with Orthopedics in 2 weeks Teto June MD Orthopedics [phone] cell Time Spent With Patient Time with patient: 15-24 minutes
[2025-01-31] MEDS: MELOXICAM 7.5 MG TABLET 15 MG PO (09:09)
--- NOTE | 2025-01-31 11:13 | OT.IP.EVAL ---
Current Diagnoses Pathological fracture in neoplastic disease, right femur, initial encounter for fracture (01/30/25) Surgery Performed Operation Date: 01/30/25 19:15 Actual Procedures p Intramedullary Nailing Femur- Long nail(Right) - Teto June MD Past Medical History (Last Reviewed 01/30/25 @ 16:47 by Jarek Rae MD) Chicken pox Family history of pulmonary fibrosis Foot pain (~1999) History of breast cancer (~2016) Hyperlipidemia Lobular breast cancer Measles Mumps Osteopenia Wears glasses Surgical History (Last Reviewed 01/30/25 @ 16:47 by Jarek Rae MD) Anesthesia History of breast biopsy (~2017) History of bunionectomy (~2007) History of meniscectomy of left knee (~1968) History of meniscectomy of right knee (~1967) History of tonsillectomy (~1954) S/P lumpectomy, right breast (~2017) Occupational Therapy Inpatient Evaluation/Re-Eval M1 OT IP Prior Functional Status Start: 01/31/25 12:31 Freq: Status: Active Protocol: Document 01/31/25 12:31 [facility] (Rec: 01/31/25 12:45 [facility] Desktop) Medical Review Prior Functional Status Medical History Yes Reviewed Diet/Fluid Regular Consistency Communication WNLs Mobility and Gait I Activities of Daily I Living and IADL's Prior Functional I Level (Other details ) Social History Household Members other Living Arrangements House Number of Floors ( One Floor Floors) Number of Stairs To 0 steps to enter Enter/Railing? Home Environment High Toilet,Tub/Shower Home Equipment Four Wheel Walker,Straight Cane,Grab Bars Near Toilet, Grab Bars In Shower M2 OT-IP Current Condition Start: 01/31/25 12:31 Freq: Status: Active Protocol: Document 01/31/25 12:31 [facility] (Rec: 01/31/25 12:45 [facility] Desktop) Occupational Therapy Current Condition Current Condition Evaluation Date 01/31/25 Treatment Diagnosis Pathological right femur fx, s/p cephalomedullary nail of right hip Diagnosis Onset Date 01/30/25 Weight Bearing Status Weight Bearing Weight Bear as Tolerated Status M3 OT- IP Subjective and Pain Start: 01/31/25 12:31 Freq: Status: Active Protocol: Document 01/31/25 12:31 [facility] (Rec: 01/31/25 12:45 [facility] Desktop) OT- Subjective Occupational Therapy Visit Type Type Initial Evaluation Visit Start Time 10:47 Visit Stop Time 11:13 Occupational Therapy Visit Comments Patient Comments Pt agreed to get up. Patient/Caregiver TO go home. Goals OT Pain Assessment Pain When Pain Assessed At Rest Pain Present Pain Present Pain Reported M4 OT- IP ADL's Start: 01/31/25 12:31 Freq: Status: Active Protocol: Document 01/31/25 12:31 [facility] (Rec: 01/31/25 12:45 [facility] Desktop) OT ADL-Grooming General Evaluation Grooming Ability Independent OT ADL-Oral Care General Eval Oral Care Ability Independent OT ADL-Dressing General Eval Lower Body Dressing Maximum Assistance Ability Comments OT Dressing Comments Able to show pt use of biller and sock aid. OT ADL-Toileting Comments OT Toileting Suggested a BSC may be helpful. Comments OT ADL-Bathing Comments OT Bathing Comments Pt will benefit from a tub bench. M5 OT- IP IADL's Start: 01/31/25 12:31 Freq: Status: Active Protocol: Document 01/31/25 12:31 [facility] (Rec: 01/31/25 12:45 [facility] Desktop) OT-Instrumental Activities of Daily Living Home Safety Awareness Awareness of Need Good Awareness for Assistance at Home Ability to Problem Able to Problem Solve Solve Emergency Situations Meal Preparation Meal Preparation Pt will need assist. Comments Publishing Editor Publishing Editor Pt will need assist. Comments M6 OT- IP Functional Cognition Start: 01/31/25 12:31 Freq: Status: Active Protocol: Document 01/31/25 12:31 [facility] (Rec: 01/31/25 12:45 [facility] Desktop) Cognitive Factors Limiting Selfcare Function Cognitive Ability Level of Alertness Alert Patient Orientation Name,Age,Birthday,Month,Date,Year,Day of Week,Place, Situation Ability to Follow Able to Follow Multi-Step Commands Commands Cognitive Comments Cognitive Assessment Intact Comments OT- Vision and Hearing OT- Hearing Assessment OT- Hearing WFL Assessment OT- Vision Assessment Visual Acuity Glasses For Reading Visual Attentiveness WFL Occular Pursuits WFL M7 OT- IP Mobility and Balance Start: 01/31/25 12:31 Freq: Status: Active Protocol: Document 01/31/25 12:31 [facility] (Rec: 01/31/25 12:45 [facility] Desktop) OT- Bed Mobility Assessment Supine to Sit Supine to Sit Assist Standby Assistance OT-Transfer Assessment Sit to and From Stand Sit to and from Contact Guard Assistance Stand Transfers Transfer Ability Contact Guard Assistance Technique Transfer Destination Bed,Chair Transfer Technique Stand Step Pivot Devices Transfer Assistive Gait Belt,Front Wheeled Walker Devices Comments Mobility Comments SBA with assist from her LLE to get her RLE to the edge of the bed. CGA to stand and with the FWW. VC to lead with RLE and use of arm son the FWW to help unweight her RLE. Educated to orange picking supervisor her feet and take small steps to turn with FWW. OT- Balance Assessment Sitting Balance and Reactions Static Sitting Good Balance Ability Dynamic Sitting Good Balance Ability Standing Balance and Reactions Static Standing Fair Balance Ability Dynamic Standing Fair Balance Ability M8 OT- IP Objective Assessments Start: 01/31/25 12:31 Freq: Status: Active Protocol: Document 01/31/25 12:31 [facility] (Rec: 01/31/25 12:45 [facility] Desktop) OT Gross Range of Motion Upper Extremity Range of Motion Assessment Within Functional Limits OT Strength Upper Extremity Strength Assessment Within Functional Limits M9 OT- IP Assessment and Plan Start: 01/31/25 12:31 Freq: Status: Active Protocol: Document 01/31/25 12:31 [facility] (Rec: 01/31/25 12:45 [facility] Desktop) OT Summary Assessment and Plan Potential Rehabilitation Good Potential Analytic Complexity Moderate at Evaluation Summary OT Impairments Pain,Strength,Balance,Functional Mobility,Dressing, Toileting,Bathing,Toilet Transfers,Shower Transfers, Activity Tolerance Progress Towards Progressing Toward Goals,Slow Progress due to Pain,Slow Goals Progress due to Medical Issues Assessment Summary Pt MOD complexity and main barrier are pain, decreased activity tolerance and will now need assist for ADL and mobility needs. Pt will benefit from ADL equipment. Pt to go home with 24/7 assist and home health when medically stable. Goals Self-Feeding Goal Independent Grooming Goal Independent Dressing Goal Independent,Long Handled Shoe Horn,French Edge Operator,Sock Aid Toileting Goal Independent Bathing Goal Standby Assistance Toilet Transfer Goal Independent Shower Transfer Goal Standby Assistance Days to Meet Goals 10 Frequency of Treatment Other frequency 5x/week Treatment Plan OT Treatment Plan ADL Training,Functional Mobility,Patient/Family Education,Discharge Planning Other Treatment LB dressing equipment practice. Recommendations and Next Treatment Focus Discharge Recommendations OT Discharge Home with 24/7 Assist Available,Home Health Recommendations Home Equipment Needs tub bench, sock aid Transportation Needs Private Vehicle at Discharge
--- NOTE | 2025-01-31 11:27 | PT.IIE ---
Current Diagnoses Pathological fracture in neoplastic disease, right femur, initial encounter for fracture (01/30/25) Surgery Performed Operation Date: 01/30/25 19:15 Actual Procedures p Intramedullary Nailing Femur- Long nail(Right) - Teto June MD Surgical History (Last Reviewed 01/30/25 @ 16:47 by Jarek Rae MD) Anesthesia History of breast biopsy (~2017) History of bunionectomy (~2007) History of meniscectomy of left knee (~1968) History of meniscectomy of right knee (~1967) History of tonsillectomy (~1954) S/P lumpectomy, right breast (~2017) Medical History (Last Reviewed 01/30/25 @ 16:47 by Jarek Rae MD) Chicken pox Family history of pulmonary fibrosis Foot pain (~1999) History of breast cancer (~2016) Hyperlipidemia Lobular breast cancer Measles Mumps Osteopenia Wears glasses Physical Therapy Inpatient Evaluation/Re-Eval M1 PT IP Prior Functional Status Start: 01/31/25 11:10 Freq: NEEDED Status: Active Protocol: Document 01/31/25 10:47 [facility] (Rec: 01/31/25 11:26 [facility] Desktop) Medical Review Prior Functional Status Medical History Yes Reviewed Diet/Fluid Regular Consistency Communication WNLs Mobility and Gait I Activities of Daily I Living and IADL's Prior Functional I Level (Other details ) Social History Household Members other Living Arrangements House Number of Floors ( One Floor Floors) Number of Stairs To 0 steps to enter Enter/Railing? 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, pathological fx R prox femur s/p nailing M3 PT-IP Subjective Start: 01/31/25 11:10 Freq: NEEDED Status: Active Protocol: Document 01/31/25 10:47 [facility] (Rec: 01/31/25 11:26 [facility] Desktop) Subjective Physical Therapy Visit Type Type Initial Evaluation Visit Start Time 10:47 Visit Stop Time 11:13 Number of QUALITY ASSURANCE ENGINEER Visits 0 Physical Therapy Visit Comments Patient Comments Pt reports she is doing well Therapy Pain Assessment Pain When Pain Assessed At Rest Pain Present Pain Present Pain Reported Location Right Hip Intensity 3 Scale Used Numeric (0 - 10) M4 PT-IP Mobility and Gait Start: 01/31/25 11:10 Freq: NEEDED Status: Active Protocol: Document 01/31/25 10:47 [facility] (Rec: 01/31/25 11:26 [facility] Desktop) PT-Bed Mobility Assessment Supine to Sit Supine to Sit Standby Assistance Scooting Scooting to Edge of Standby Assistance Bed PT-Transfer Assessment Sit to and From Stand Sit to and from Contact Guard Assistance,1 Person Assistance Stand Equipment Transfer Assistive Gait Belt,Front Wheeled Walker Device Orthotic/Prosthetic No Devices or Brace: Transfers Transfer Destination Chair Transfer Technique Stepping Transfer Ability Level of Assist Contact Guard Assistance Comments Mobility Comments BP only LUE, BP normal and no light-headedness with mobility Gait Assessment Gait Gait Assistance Contact Guard Assist Required: Distance (Feet) 10 Able to Maintain Yes Weight Bearing Status During Gait Assistive Devices Assistive Device Gait Belt,Front Wheeled Walker Gait Deviations General Gait Pattern Antalgic,Decreased Stride Length,Decreased Feet Clearance,Flexed Trunk,Step-to Gait Factors Limiting Gait Function Factors Limiting Decreased Activity Tolerance,Decreased Strength,Limited Gait Function Range of Motion,Pain Comments Gait Comments 10'x2 with step-to pattern, walker, then right and then left foot for forward gait PT-Balance Assessment Sitting Balance and Reactions Static Sitting Good Balance Ability Dynamic Sitting Good Balance Ability Standing Balance and Reactions Static Standing Good Balance Ability Dynamic Standing Fair Balance Ability Device Used RW M5 PT-IP Objective Assessments Start: 01/31/25 11:10 Freq: NEEDED Status: Active Protocol: Document 01/31/25 10:47 [facility] (Rec: 01/31/25 11:26 MB Desktop) Orientation Orientation/Cognition Level of Alertness Alert Language Function No Deficits Noted Ability Safety Awareness Decreased Safety Awareness Memory Description No Deficits Noted Gross Range of Motion Upper Extremity ROM Impairments Defer to OT Lower Extremity ROM Assessment Right Impaired Strength Lower Extremity Strength Assessment Right Impaired Comments Strength Comments Deferred MMT in setting of metastatic breast cancer to bone, functional in LLE Coordination Assessment Gross Coordination Gross Coordination Impaired Sensation Assessment Comments Sensation Comments NT Muscle Tone Muscle Tone WNL Yes M6 PT-IP Treatment Start: 01/31/25 11:10 Freq: NEEDED Status: Active Protocol: Document 01/31/25 10:47 [facility] (Rec: 01/31/25 11:26 MB Desktop) Physical Therapy Treatment Education Education Provided Safety M7 PT-IP Assessment and Plan Start: 01/31/25 11:10 Freq: NEEDED Status: Active Protocol: Document 01/31/25 10:47 [facility] (Rec: 01/31/25 11:26 [facility] Desktop) PT Summary Assessment and Plan Potential Rehabilitation Fair Potential Status of Condition Evolving at Evaluation Summary Impairments Pain,ROM,Strength,Balance,Coordination,Bed Mobility, Transfers,Gait,Activity Tolerance Assessment Summary Pt is a delightful 74 y/o female with history of metastatic breast cancer to bone and acute pathological fracture of right femur now s/p nailing. Pt is WBAT. She lives alone on [address] and her sister will come to stay with her at d/c. Pt presents with pain and good mobility for first time up with PT. PT does ed pt that she is risk for further fracture in any long bone and spine and so she needs to move carefully and use RW at home. Instructed in step-to gait training at this time. Pt is receptive to mobility and safety training today. Goals Bed Mobility Goal Independent Transfer Goal Independent,Front Wheeled Walker Gait Goal Independent,Front Wheel Walker Gait Distance 100 Days to Meet Goals 5 Frequency of Treatment Frequency Of Once a Day Treatment Treatment Plan Physical Therapy Bed Mobility Training,Transfer Training,Gait Training, Treatment Plan Therapeutic Exercise,Balance Retraining,Post Op Education,Discharge Planning,Hot or Cold Pack, Neuromuscular Re-ed,Coordination Retraining,Manual Therapy Precautions Other Precautions BP only in LUE Weight Bearing Status Weight Bearing Weight Bear as Tolerated Status Recommendations To Nursing Amount of Assist 1 Person Assist Needed Discharge Recommendations PT Discharge Home with 27/09 Assist Available,Home Health Recommendations Transportation Needs Private Vehicle at Discharge - PT assist x1
--- NOTE | 2025-01-31 11:37 | CM.DANOTE ---
Initial DCP Assessment Note. Review EMR and PT Interview. Met with patient at bedside to discuss discharge needs.PT is alert x 4 sitting up in chair. No acute distress. Independent. Lives alone. Sister is able to continuous pickling line pickler patient if she is discharged with HH. Sister will be staying with patient for a while to help out. Payor:??[facility] PCP: in [facility]? Summary & Plan:?74 y/o female arrived to ED via EMS c/o RT hip pain. Admitted INPT. Dx. Rt. FEmur Fx. Plan: Surgery, PT eval, and pain control. Discharge Planning/Care Management CM Discharge Assessment Start: 01/30/25 14:51 Freq: Status: Active Protocol: Document 01/31/25 11:34 (Rec: 01/31/25 11:37 SM [id number]) Discharge Planning Assessment Assigned Discharge Danyelle Espinosa RN CM Rn Internal Medicine Provider Dr. Ortiz in [facility] Insurance Medicare Advance Directives? No: DNR/DNI paperwork at home History Provided By Patient Has Patient been No admitted in last 30 days? Prior Living House Arrangements Comment No Stairs Household Members other Independent with ADL Yes 's Is patient alert and Yes oriented? [facility] Home Health Nurse used prior to admission: DME Already Rented / FWW / Walker,Cane Owned Comment HH vs SNF TBD Barriers to No Discharge Transportation HH vs SNF TBD Arrangement Review Status In Process Please Provide Date 01/31/25 Initial DC Assessment Was Performed Next Review Type Continued Stay Review
[2025-01-31] MEDS: ENOXAPARIN 30 MG/0.3 ML SYRINGE SUBCUT (12:17)
[2025-01-31] MEDS: SENNOSIDES 8.6 MG TABLET 17.2 MG PO (20:52)
[2025-02-01] MEDS: ACETAMINOPHEN 325 MG TABLET 650 MG PO ×4 (04:54→22:45)
[2025-02-01 05:09] LABS: Add Manual Diff / Slide Review NO; Hematocrit 25.3 % (36-46); Hemoglobin 8.9 g/dL (12.0-16.0); Lymphocytes Absolute Auto 900 /uL (1100-4500); Mean Corpuscular HGB Conc 35.2 % (30-36); Mean Corpuscular Hemoglobin 31.1 PG (26-34); Mean Corpuscular Volume 88.2 fL (80-100); Platelet Count 130 X10^3/uL (150-400)
[2025-02-01 05:27] LABS: Blood Urea Nitrogen 27 mg/dL (7-17); Calcium 9.8 mg/dL (8.4-10.2); Carbon Dioxide 29 mmol/L (22-32); Chloride 105 mmol/L (98-107); Estimated Glomerular Filt Rate 55 mL/min (>60); Glucose 101 mg/dL (70-99); HEMOLYSIS < 15 (0-50); Potassium 4.2 mmol/L (3.4-5.1); Sodium 138 mmol/L (137-145)
--- NOTE | 2025-02-01 07:27 | P.PN_ITS ---
Subjective Subjective Interval history: Summary: 74yo F with a past medical history of metastatic breast cancer presents to the emergency department with right hip pain. She had increasing right hip pain over the last couple of weeks. She reports that she attempted to sit down in her couch and she felt a crack in her hip. She had immediate pain and was unable to ambulate. She was then brought to the emergency department where they obtained radiographs which demonstrated her right hip fracture. Orthopedics was then consulted. 01/30: Underwent Cephalomedullary Nail of the Right Hip. 01/31: Doing well, good pain control. Able to ambulate with PT. S: She was doing well overall with ambulation. Her hip pain is little bit worse today. She does live alone. Discussed the need for Lovenox for 30 days for DVT prophylaxis with her history of hip fracture and metastatic cancer. She was followed by Dr. Madden, [facility]. O: VSS NAD, alert and oriented. Fluent speech. Lungs are clear, normal rate and effort. Heart is regular, no murmur gallop or rub. Abdomen is soft, non distended. Extremities are free of edema. A/P: Assessment & Plan narrative: 1. Pathologic proximal femur fracture secondary to breast cancer and bone, active. 2. Metastatic breast cancer, active. 3. Mild hypercalcemia, active. PLAN: -PT -pain control -DVT prophylaxis after surgery, Lovenox 30 mg subQ daily (metastatic concer) * 30 days. -DNR, confirmed at admission Needs another night for pain control and physical therapy given her hip fracture. This supports inpatient status. GT: February 02 home with home health. Lives on [address], alone. Exam Vital Signs (past 8 hours): Oxygen Delivery Method Room Air Oxygen Flow Rate 0 Objective Labs 02/01/25 04:52 02/01/25 04:52 Labs: Laboratory Results - last 24 hr 02/01/25 04:52 WBC 6.5 RBC 2.87 L Hgb 8.9 L Hct 25.3 L MCV 88.2 MCH 31.1 MCHC 35.2 RDW 13.2 Plt Count 130 L Neut % (Auto) 71.6 Lymph % (Auto) 14.5 L [place] % (Auto) 9.6 Eos % (Auto) 0.4 L Baso % (Auto) 3.9 H Neut # (Auto) 4600 Lymph # (Auto) 900 L [place] # (Auto) 600 Eos # (Auto) 0 Baso # (Auto) 300 H Sodium 138 Potassium 4.2 Chloride 105 Carbon Dioxide 29 BUN 27 H Creatinine 1.07 H Estimated GFR 55 L BUN/Creatinine Ratio 25.2 H Glucose 101 H Calcium 9.8 PFSH Medical History Lobular breast cancer Hyperlipidemia Wears glasses Foot pain (~1999) Mumps Measles Chicken pox Family history of pulmonary fibrosis Osteopenia History of breast cancer (~2016) Surgical History Anesthesia History of breast biopsy (~2017) History of meniscectomy of right knee (~1967) History of meniscectomy of left knee (~1968) History of tonsillectomy (~1954) History of bunionectomy (~2007) S/P lumpectomy, right breast (~2017) Family History Father Hyperlipidemia Hypertension Mother Pulmonary fibrosis Grandfather History of heart disease Social History household members: other Smoking Status: Never smoker Tobacco: How many years used: 1 alcohol intake: current substance use type: does not use Assessment & Plan Time-Based Coding :: [TOTAL MINUTES] spent with patient and on the chart (including review of chart, obtaining history, exam, reviewing outside data, placing orders, documenting exam and treatment plan, and counseling patient) on [DATE].
[2025-02-01] MEDS: ENOXAPARIN 30 MG/0.3 ML SYRINGE SUBCUT (07:50)
[2025-02-01] MEDS: MELOXICAM 7.5 MG TABLET 15 MG PO (07:51)
[2025-02-01] MEDS: DOCUSATE 100 MG CAPSULE PO ×2 (07:51→20:52)
--- NOTE | 2025-02-01 08:48 | PM.PNPO.1 ---
Exam Vital Signs (past 8 hours): Oxygen Delivery Method Room Air Oxygen Flow Rate 0 Objective Labs 02/01/25 04:52 02/01/25 04:52 Labs: Laboratory Results - last 24 hr 02/01/25 04:52 WBC 6.5 RBC 2.87 L Hgb 8.9 L Hct 25.3 L MCV 88.2 MCH 31.1 MCHC 35.2 RDW 13.2 Plt Count 130 L Neut % (Auto) 71.6 Lymph % (Auto) 14.5 L [place] % (Auto) 9.6 Eos % (Auto) 0.4 L Baso % (Auto) 3.9 H Neut # (Auto) 4600 Lymph # (Auto) 900 L [place] # (Auto) 600 Eos # (Auto) 0 Baso # (Auto) 300 H Sodium 138 Potassium 4.2 Chloride 105 Carbon Dioxide 29 BUN 27 H Creatinine 1.07 H Estimated GFR 55 L BUN/Creatinine Ratio 25.2 H Glucose 101 H Calcium 9.8 PFSH Medical History Lobular breast cancer Hyperlipidemia Wears glasses Foot pain (~1999) Mumps Measles Chicken pox Family history of pulmonary fibrosis Osteopenia History of breast cancer (~2016) Surgical History Anesthesia History of breast biopsy (~2017) History of meniscectomy of right knee (~1967) History of meniscectomy of left knee (~1968) History of tonsillectomy (~1954) History of bunionectomy (~2007) S/P lumpectomy, right breast (~2017) Family History Father Hyperlipidemia Hypertension Mother Pulmonary fibrosis Grandfather History of heart disease Social History household members: other Smoking Status: Never smoker Tobacco: How many years used: 1 alcohol intake: current substance use type: does not use Assessment & Plan Post-op Postoperative Procedures: Procedures Operation Date: 01/30/25 19:15 Actual Procedure Side Surgeon p Intramedullary Nailing Femur- Long nail Right Teto June MD Postoperative status narrative: Postoperative plan narrative: ID: 74 yo F s/p RIGHT Hip Cephalomedullary Nail for a RIGHT subtrochanteric femur fracture on 01/30/25 S: Pain controlled with pain medications. Denies F/C/NS/CP/SOB. Tolerating PO. She walked 10 feet twice with therapy yesterday. Her sister is supposed to arrive today to help take care of her. O: RIGHT Hip: Dressings with small amount of strikethrough Fires Quad/Hamstring/TA/Gastroc/EHL SILT in S/S/DP/SP/T nerve distributions Cap refill < 2 sec A/P: 74 yo F s/p RIGHT Hip Cephalomedullary Nail on 01/30/25. Doing really well. Depending on how she does with physical therapy, she may be able to discharge to home later today. ?Admitted to Hospitalist (Appreciate assistance with this patient) ?WBAT ?PT/OT ?DVT Proph per primary team ?Multimodal Pain Control ?DISPO: Pending however the patient will follow up with Orthopedics in 2 weeks Teto June MD Orthopedics [phone] cell Time Spent With Patient Time with patient: 15-24 minutes
[2025-02-01 09:00] VITALS: BP 164/81; PULSE 58; RESP 16; TEMP 36.4; O2SAT 98
--- NOTE | 2025-02-01 09:15 | OT.IP.TRT ---
Current Diagnoses Pathological fracture in neoplastic disease, right femur, initial encounter for fracture (01/30/25) Surgery Performed Operation Date: 01/30/25 19:15 Actual Procedures p Intramedullary Nailing Femur- Long nail(Right) - Teto June MD Occupational Therapy Treatment Note M2 OT-IP Current Condition Start: 01/31/25 12:31 Freq: Status: Active Protocol: Document 01/31/25 12:31 CCC (Rec: 01/31/25 12:45 [facility] Desktop) Occupational Therapy Current Condition Current Condition Evaluation Date 01/31/25 Treatment Diagnosis Pathological right femur fx, s/p cephalomedullary nail of right hip Diagnosis Onset Date 01/30/25 Weight Bearing Status Weight Bearing Weight Bear as Tolerated Status M3 OT- IP Subjective and Pain Start: 01/31/25 12:31 Freq: Status: Active Protocol: Document 02/01/25 10:16 [facility] (Rec: 02/01/25 10:22 [facility] Desktop) OT- Subjective Occupational Therapy Visit Type Type Treatment Note Visit Start Time 09:15 Visit Stop Time 09:39 Occupational Therapy Visit Comments Patient Comments Pt agreed to get up to do oral care needs. Patient/Caregiver TO go home. Goals OT Pain Assessment Pain When Pain Assessed During Mobility Pain Present Pain Present Pain Reported Location Right Hip Intensity 8 Scale Used Numeric (0 - 10) M4 OT- IP ADL's Start: 01/31/25 12:31 Freq: Status: Active Protocol: Document 02/01/25 10:16 CCC (Rec: 02/01/25 10:22 [facility] Desktop) OT [id number] General Evaluation Self-Feeding Ability Independent OT ADL-Grooming General Evaluation Grooming Ability Independent OT ADL-Oral Care General Eval Oral Care Ability Independent OT ADL-Dressing General Eval Lower Body Dressing Standby Assistance Ability Areas Needing Retrieving/Set-up of Clothing,Socks Assistance Assistive Devices Dressing Assistive Toll Patrolman,Sock Aid Devices OT ADL-Toileting Comments OT Toileting Pt states did prior. Comments OT ADL-Bathing Comments OT Bathing Comments Pt states surgeon states ok to shower after Tuesday per pt. Pt will benefit from a tub bench. M5 OT- IP IADL's Start: 01/31/25 12:31 Freq: Status: Active Protocol: Document 01/31/25 12:31 CCC (Rec: 01/31/25 12:45 [facility] Desktop) OT-Instrumental Activities of Daily Living Home Safety Awareness Awareness of Need Good Awareness for Assistance at Home Ability to Problem Able to Problem Solve Solve Emergency Situations Meal Preparation Meal Preparation Pt will need assist. Comments Credit Reporter Credit Reporter Pt will need assist. Comments M6 OT- IP Functional Cognition Start: 01/31/25 12:31 Freq: Status: Active Protocol: Document 02/01/25 10:16 [facility] (Rec: 02/01/25 10:22 [facility] Desktop) Cognitive Factors Limiting Selfcare Function Cognitive Comments Cognitive Assessment Intact Comments M7 OT- IP Mobility and Balance Start: 01/31/25 12:31 Freq: Status: Active Protocol: Document 02/01/25 10:16 [facility] (Rec: 02/01/25 10:22 [facility] Desktop) OT- Bed Mobility Assessment Supine to Sit Supine to Sit Assist Standby Assistance Sit to Supine Sit to Supine Assist Standby Assistance OT-Transfer Assessment Sit to and From Stand Sit to and from Standby Assistance Stand Transfers Transfer Ability Standby Assistance Technique Transfer Destination Bed Devices Transfer Assistive Gait Belt,Front Wheeled Walker Devices Comments Mobility Comments Pt still needing her hands to assist to move her RLE to the edge of the bed, SBA to stand and take step to the sink and back. Pt good safety to move FWW then RLE and LLE and take smaller steps while turning. OT- Balance Assessment Sitting Balance and Reactions Static Sitting Normal Balance Ability Dynamic Sitting Good Balance Ability Standing Balance and Reactions Static Standing Good Balance Ability Dynamic Standing Fair Balance Ability M8 OT- IP Objective Assessments Start: 01/31/25 12:31 Freq: Status: Active Protocol: Document 01/31/25 12:31 [facility] (Rec: 01/31/25 12:45 [facility] Desktop) OT Gross Range of Motion Upper Extremity Range of Motion Assessment Within Functional Limits OT Strength Upper Extremity Strength Assessment Within Functional Limits M9 OT- IP Assessment and Plan Start: 01/31/25 12:31 Freq: Status: Active Protocol: Document 02/01/25 10:16 [facility] (Rec: 02/01/25 10:22 [facility] Desktop) OT Summary Assessment and Plan Potential Rehabilitation Good Potential Analytic Complexity Moderate at Evaluation Summary OT Impairments Pain,Strength,Balance,Functional Mobility,Dressing, Toileting,Bathing,Toilet Transfers,Shower Transfers, Activity Tolerance Progress Towards Progressing Toward Goals Goals Assessment Summary Pt moving better today and able to practice LB dressing equipment with pt. Pt to go home with 24/7 assist when medically stable and have home health. Goals Self-Feeding Goal Independent Grooming Goal Independent Dressing Goal Independent,Long Handled Shoe Horn,Toll Patrolman,Sock Aid Toileting Goal Independent Bathing Goal Standby Assistance Toilet Transfer Goal Independent Shower Transfer Goal Standby Assistance Days to Meet Goals 5 Frequency of Treatment Other frequency 5x/week Discharge Recommendations OT Discharge Home with 24/7 Assist Available,Home Health Recommendations Home Equipment Needs tub bench, sock aid, fww Transportation Needs Private Vehicle at Discharge
[2025-02-01 09:20] VITALS: PULSE 74; RESP 16; TEMP 36.2; O2SAT 97
--- NOTE | 2025-02-01 11:33 | DIET.CONS ---
Dietary Consultation Note Admission Date: 01/30/2025 14:49 Assessment: 74 y F admitted for hip fracture. Dietitian consulted for weight loss. Met with pt at bedside. Reports decline in weight over a year or 2. Reports recent loss of 4 lb in past 3 months. Reports good appetite here, difficulty sometimes preparing foods at home. Diet recall: pb toast and protein powder+fruit+water smoothie pasta for lunch regular dinner Reports her doctor told her to stop taking in high calcium food related to lab level. Stopped eating yogurt and milk. NFPE with severe muscle wasting in temples, deltoid, trapezius and moderate to severe loss in buccal and orbital fat pads. Ht: 157.48 cm Wt: 47.627 kg BMI: 19.2 UBW: -4lb in last 3 months per pt Last BM: 01/29/25 (01/30/25 15:54) MNA: 7 Stone Score: 20 Diet: 01/31/25 Breakfast General (Regular) Diet Diet Modifications: Food Texture: Level 7 - Regular Liquid Consistency: Level 0 - Thin Nutrition Percent Meal Consumed 25% 02/01/25 08:55 Percent Meal Consumed 75% 01/31/25 17:27 Percent Meal Consumed 50% 01/31/25 13:44 Percent Meal Consumed 95 01/31/25 08:50 Labs: RBC 2.87 X10^6/uL (4.0-5.2) L 02/01/25 04:52 Hgb 8.9 g/dL (12.0-16.0) L 02/01/25 04:52 Hct 25.3 % (36-46) L 02/01/25 04:52 Creatinine 1.07 mg/dL (0.52-1.04) H 02/01/25 04:52 Nutrition Diagnosis: Severe chronic protein calorie malnutrition r/t increased nutrient needs and inadequate oral intake as evidenced by severe muscle mass wasting (temples, deltoid, trapezius) and moderate to severe subcutaneous fat loss (buccal and orbital fat pads), BMI underweight for age (19.2), and metastatic breast cancer Interventions: Ensure Enlive/Plus vanilla BID Reviewed high kcal/high protein handout with suggestions to use juice in smoothie instead of water, add extra oil/butter on top of pasta, have 2 protein shakes daily, add bedtime snack EER: 1700 kcals (35 kcals/kg per BMI) 65-75 g protein (1.3-1.5 g/kg per cancer/PCM) Monitoring/Evaluations: PO intakes, ONS tolerance Electronically Signed by: Mona Quezada 02/01/25 11:33 Clinical Dietitian [address] [id number]
--- NOTE | 2025-02-01 14:36 | PT.IPTN ---
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, pathological fx R prox femur s/p nailing M3 PT-IP Subjective Start: 01/31/25 11:10 Freq: NEEDED Status: Active Protocol: Document 02/01/25 14:30 KJ (Rec: 02/01/25 14:36 KJ [id number]) Subjective Physical Therapy Visit Type Type Treatment Note Visit Start Time 13:49 Visit Stop Time 14:28 Physical Therapy Visit Comments Patient Comments Asking about bathing at home and car rides M4 PT-IP Mobility and Gait Start: 01/31/25 11:10 Freq: NEEDED Status: Active Protocol: Document 02/01/25 14:30 KJ (Rec: 02/01/25 14:36 KJ [id number]) PT-Bed Mobility Assessment Supine to Sit Supine to Sit Minimal Assistance Sit to Supine Sit to Supine Minimal Assistance Scooting Scooting to Edge of Minimal Assistance Bed PT-Transfer Assessment Sit to and From Stand Sit to and from Contact Guard Assistance Stand Equipment Transfer Assistive Gait Belt,Front Wheeled Walker Device Gait Assessment Gait Gait Assistance Contact Guard Assist Required: Distance (Feet) 75 Assistive Devices Assistive Device Gait Belt,Front Wheeled Walker Comments Gait Comments decreased R knee flex and decreased plantar push off during ambulation Stair Climbing Assessment Comments Stair Climbing Discussed stairs with sister and patient Comments PT-Balance Assessment Sitting Balance and Reactions Static Sitting Normal Balance Ability Dynamic Sitting Normal Balance Ability Standing Balance and Reactions Static Standing Normal Balance Ability Dynamic Standing Good Balance Ability M5 PT-IP Objective Assessments Start: 01/31/25 11:10 Freq: NEEDED Status: Active Protocol: Document 01/31/25 10:47 MB (Rec: 01/31/25 11:26 MB Desktop) Orientation Orientation/Cognition Level of Alertness Alert Language Function No Deficits Noted Ability Safety Awareness Decreased Safety Awareness Memory Description No Deficits Noted Gross Range of Motion Upper Extremity ROM Impairments Defer to OT Lower Extremity ROM Assessment Right Impaired Strength Lower Extremity Strength Assessment Right Impaired Comments Strength Comments Deferred MMT in setting of metastatic breast cancer to bone, functional in LLE Coordination Assessment Gross Coordination Gross Coordination Impaired Sensation Assessment Comments Sensation Comments NT Muscle Tone Muscle Tone WNL Yes M6 PT-IP Treatment Start: 01/31/25 11:10 Freq: NEEDED Status: Active Protocol: Document 02/01/25 14:30 KJ (Rec: 02/01/25 14:36 KJ [id number]) Physical Therapy Treatment Exercises Exercises Ankle Pumps,Gluteal Sets,Quad Sets,Short Arc Quads Other Treatments Other Treatment Standing exercises at sink ledge: knee flex, hip abd, Performed hip ext. Discussed precautions in depth, including taking time during mobility, planning path in advance, avoiding distractions. Reviewed TTWB. M7 PT-IP Assessment and Plan Start: 01/31/25 11:10 Freq: NEEDED Status: Active Protocol: Document 02/01/25 14:30 KJ (Rec: 02/01/25 14:36 KJ [id number]) PT Summary Assessment and Plan Potential Rehabilitation Excellent Potential Status of Condition Evolving at Evaluation Summary Impairments ROM,Strength,Bed Mobility,Transfers,Gait Assessment Summary Improving physical function. Treatment Plan Physical Therapy Bed Mobility Training,Transfer Training,Gait Training, Treatment Plan Therapeutic Exercise Other Continue TTWB Recommendations and Next Treatment Focus Weight Bearing Status Weight Bearing Touch Down Weight Bearing Status Recommendations To Nursing Amount of Assist 1 Person Assist Needed Discharge Recommendations PT Discharge Home with 27/09 Assist Available Recommendations Equipment Needed for tub bench - sister may contact [facility] Before Discharge
[2025-02-01 19:00] VITALS: BP 173/85; PULSE 72; RESP 17; TEMP 36.2; O2SAT 98
[2025-02-01] MEDS: ONDANSETRON 4 MG/2 ML INJ IV (20:52)
[2025-02-01] MEDS: METHADONE 10 MG TABLET PO (20:52)
[2025-02-01] MEDS: SENNOSIDES 8.6 MG TABLET 17.2 MG PO (20:52)
[2025-02-02] MEDS: ACETAMINOPHEN 325 MG TABLET 650 MG PO (04:45)
[2025-02-02 08:00] VITALS: BP 160/91; PULSE 57; RESP 16; TEMP 36.1; O2SAT 95
--- NOTE | 2025-02-02 08:26 | PM.PNPO.1 ---
Exam Vital Signs (past 8 hours): Oxygen Delivery Method Room Air Oxygen Flow Rate 0 Objective Labs 02/01/25 04:52 02/01/25 04:52 [facility] Medical History Lobular breast cancer Hyperlipidemia Wears glasses Foot pain (~1999) Mumps Measles Chicken pox Family history of pulmonary fibrosis Osteopenia History of breast cancer (~2016) Surgical History Anesthesia History of breast biopsy (~2017) History of meniscectomy of right knee (~1967) History of meniscectomy of left knee (~1968) History of tonsillectomy (~1954) History of bunionectomy (~2007) S/P lumpectomy, right breast (~2017) Family History Father Hyperlipidemia Hypertension Mother Pulmonary fibrosis Grandfather History of heart disease Social History household members: other Smoking Status: Never smoker Tobacco: How many years used: 1 alcohol intake: current substance use type: does not use Assessment & Plan Post-op Postoperative Procedures: Procedures Operation Date: 01/30/25 19:15 Actual Procedure Side Surgeon p Intramedullary Nailing Femur- Long nail Right Teto June MD Postoperative status narrative: ID: 74 yo F s/p RIGHT Hip Cephalomedullary Nail for a RIGHT subtrochanteric femur fracture on 01/30/25 S: Pain controlled with pain medications. Denies F/C/NS/CP/SOB. Tolerating PO. She walked 75 feet with therapy yesterday. Her sister is in the area and plans to take care of her at home. O: RIGHT Hip: Dressings with small amount of strikethrough Fires Quad/Hamstring/TA/Gastroc/EHL SILT in S/S/DP/SP/T nerve distributions Cap refill < 2 sec A/P: 74 yo F s/p RIGHT Hip Cephalomedullary Nail on 01/30/25. Doing well. She will discharge to home with the assistance of her sister. ?Admitted to Hospitalist (Appreciate assistance with this patient) ?WBAT ?PT/OT ?DVT Proph per primary team ?Multimodal Pain Control ?DISPO: Pending however the patient will follow up with Orthopedics in 2 weeks Teto June MD Orthopedics [phone] cell Postoperative plan: routine post-op care Time Spent With Patient Time with patient: 15-24 minutes
--- NOTE | 2025-02-02 08:28 | P.DS_ITS ---
History of Present Illness History of Present Illness Date Patient Seen: 02/02/25 Chief complaint: RIGHT Hip Fracture Narrative: Chief complaint: Pathologic right hip fracture while sitting down on a couch in a patient with a history of metastatic breast cancer History of present illness: 01/30: 74yo F with a past medical history of metastatic breast cancer presents to the emergency department with right hip pain. She had increasing right hip pain over the last couple of weeks. She reports that she attempted to sit down in her couch and she felt a crack in her hip. She had immediate pain and was unable to ambulate. She was then brought to the emergency department where they obtained radiographs which demonstrated her right hip fracture. Orthopedics was then consulted. Hospital course: 01/30: Underwent Cephalomedullary Nail of the Right Hip. 01/31: Doing well, good pain control. Able to ambulate with PT. S: She was doing well overall with ambulation. Her hip pain is little bit worse today. She does live alone. Discussed the need for Lovenox for 30 days for DVT prophylaxis with her history of hip fracture and metastatic cancer. She was followed by Dr. Madden, [facility]. O: VSS NAD, alert and oriented. Fluent speech. Lungs are clear, normal rate and effort. Heart is regular, no murmur gallop or rub. Abdomen is soft, non distended. Extremities are free of edema. A/P: Assessment & Plan narrative: 1. Pathologic proximal femur fracture secondary to breast cancer and bone, active. 2. Metastatic breast cancer, active. 3. Mild hypercalcemia, active. PLAN: -PT -pain control -DVT prophylaxis after surgery, Lovenox 30 mg subQ daily (metastatic concer) * 30 days. -DNR, confirmed at admission Needs another night for pain control and physical therapy given her hip fracture. This supports inpatient status. GT: February 02 home with home health. Lives on [facility], alone. Disposition: Discharge to home: Time based billing: * 35 minutes were involved discharge of this patient including [id number] evaluation review of records objective findings discussion with care is management and with family Discharge Providers Provider Date of admission: 01/30/25 14:49 Discharge Date: 02/02/25 Primary care physician: Laura Ortiz DO Consults: 01/30/25 16:09 Consult to Dietitian, Adult Routine Comment: Reason For Exam: 20lbs weight loss in past 3 months 01/30/25 22:46 Consult to Discharge Planning Routine Comment: Consult to Occupational Therapy Evaluate & Treat Comment: Physician Instructions: Evaluate and treat Consult to Physical Therapy Evaluate & Treat Comment: Please see POD1. She is WBAT. No hip precautions. Physician Instructions: Evaluate and Treat Discharge provider: Ricardo Treviño MD Exam Vital Signs (past 8 hours): Oxygen Delivery Method Room Air Oxygen Flow Rate 0 Objective Labs 02/01/25 04:52 02/01/25 04:52 PFSH Medical History Lobular breast cancer Hyperlipidemia Wears glasses Foot pain (~1999) Mumps Measles Chicken pox Family history of pulmonary fibrosis Osteopenia History of breast cancer (~2016) Surgical History Anesthesia History of breast biopsy (~2017) History of meniscectomy of right knee (~1967) History of meniscectomy of left knee (~1968) History of tonsillectomy (~1954) History of bunionectomy (~2007) S/P lumpectomy, right breast (~2017) Family History Father Hyperlipidemia Hypertension Mother Pulmonary fibrosis Grandfather History of heart disease Social History household members: other Smoking Status: Never smoker Tobacco: How many years used: 1 alcohol intake: current substance use type: does not use Discharge Plan Discharge Plan Patient Disposition: Home Health Service Discharge orders & Medications Prescriptions: New enoxaparin [Lovenox] 30 mg/0.3 mL Syringe 30 mg SUBCUT DAILY 30 Days Qty: 30 0RF sennosides [senna] 8.6 mg Tablet 17.2 mg PO BEDTIME Qty: 60 0RF acetaminophen 325 mg Tablet 650 mg PO Q6H Qty: 100 0RF polyethylene glycol 3350 [Gavilax] 17 gram Powder In Packet 17 gm PO DAILY PRN (Reason: Constipation) Qty: 12 12RF meloxicam 7.5 mg Tablet 15 mg PO 0800 Qty: 60 0RF docusate sodium 100 mg Capsule 100 mg PO BID Qty: 60 0RF ondansetron 4 mg Tablet,Disintegrating 4 mg PO Q4H PRN (Reason: Nausea And Vomiting) Qty: 20 0RF oxycodone 5 mg Tablet 5 mg PO Q3H PRN (Reason: Pain, Severe (7-10)) Qty: 15 0RF enoxaparin 30 mg/0.3 mL syringe 30 mg SUBCUT DAILY Qty: 90 0RF Rx Instructions: Thirty syringes meloxicam 15 mg tablet 15 mg PO DAILY Qty: 30 0RF polyethylene glycol 3350 [Miralax] 17 gram powder in packet 17 g PO BID Qty: 30 0RF ondansetron HCl 4 mg tablet 4 mg PO Q6H PRN (Reason: nausea and vomiting) Qty: 10 0RF Continued melatonin 10 mg capsule 10 mg PO BEDTIME PRN (Reason: insomnia) letrozole 2.5 mg tablet 2.5 mg PO DAILY Patient Comments: 5am, 11am, 5pm methadone 10 mg/mL concentrate 10 mg PO TID Patient Comments: 5am, 11am, 5pm tizanidine 2 mg tablet 2 mg PO Q6H PRN (Reason: pain) Follow up/Referrals: Michaelle Quezada ARNP [Non-Staff, Family Practice] Laura Ortiz DO [Primary Care Provider, Medical] Diet/Activity/Treatments Diet: Diet as Tolerated Visit Report/Discharge Packet Stand Alone Forms: Patient Portal/API, Stroke Signs & Symptoms Discharge Data Primary Care Provider: Laura Ortiz
[2025-02-02] MEDS: MELOXICAM 7.5 MG TABLET 15 MG PO (09:27)
[2025-02-02] MEDS: METHADONE 10 MG TABLET PO (09:28)
[2025-02-02] MEDS: ENOXAPARIN 30 MG/0.3 ML SYRINGE SUBCUT (09:29)
[2025-02-02] MEDS: DOCUSATE 100 MG CAPSULE PO (09:29)
--- NOTE | 2025-02-02 14:55 | CM.DPC ---
DCP Discharge Home with HH Per MD, pt is medically stable to discharge home today with HH and oupt f/u and no identified barriers to discharge. Previous DCP sent [facility] referral and orders and secure emailed discharge summary to [facility] to review. ATA Mo
== END 2025-02-02 10:45 | disposition home health service (06) | DRG 480 ==
LOC: ED 14:48 → AC 14:51
PROVIDERS: Hospitalist; Admitting Provider Orthopaedic Surgery; Emergency Provider Emergency Medicine; PCP Family Medicine; Referring Provider Emergency Medicine; Visit Provider Orthopaedic Surgery
PROC: 0QS606Z Reposition Right Upper Femur with Intramedullary Internal Fixation Device, Open Approach (ICD-10-PCS; CPT 27245; principal; 2025-01-30 19:15)
DX: M84.551A Pathological fracture in neoplastic disease, right femur, initial encounter for fracture (principal); E43 Unspecified severe protein-calorie malnutrition; C79.51 Secondary malignant neoplasm of bone; Z68.1 Body mass index [BMI] 19.9 or less, adult; E83.52 Hypercalcemia; C50.411 Malignant neoplasm of upper-outer quadrant of right female breast; Z66 Do not resuscitate
CPT/HCPCS: 36415; 73502; 73552; 76000; 80048; 80053; 85025; 86850; 86900; 86901; 93005; 96374; 97110; 97161; 97166; 97530; 97535; 99283; 99284; C1713; J0689; J1100; J1171; J1650; J1885; J2405; J2704; J3010; J7030; J7050; J7120